=== PATIENT | female | born 1955 | race African-American/Black ===

== ENCOUNTER → 2016-05-14 | Outpatient (CLI) | payer MEDICARE ==
--- NOTE | ~2016-05-14 | CT57 ---
[facility] A Service of [facility] RADIOLOGY TEXT RESULTS PATIENT: MARCI PAZ LOCATION: [facility] #: [id number] : 51 UNIT #: [id number] AGE: [address]: Indiana Vyas MD SEX: F ORDER DR: [id number] [facility] [address] [place], [place] [address] [id number] O MR#: [id number] [facility] #: [id number] NAME: MARCI PAZ : 1955 SEX: F STUDY DATE/TIME: 05/14/2016 12:43 UNIT: [facility] ROOM: STUDY DESCRIPTION: CT Chest Wo Cont Attending Physician: Indiana Vyas M.D., Ph.D. Referring Physician: Indiana Vyas M.D., Ph.D. Ordering Physician: Indiana Vyas M.D., Ph.D. MEDICAL IMAGING REPORT This report is preliminary unless electronic signature is present EXAM CT scan of the chest without contrast. HISTORY 61-year-old female with esophageal cancer. Observation for any malignant process. Radiation therapy and chemotherapy from November 2015 to February 2016. Routine follow-up. TECHNIQUE CT of the chest was performed without contrast. Coronal and sagittal reformatted images were obtained. This CT exam was performed with one or more of the following radiation dose reduction techniques: automatic exposure control, adjustment of mA and/or kV according to patient size, and iterative reconstruction. COMPARISON PET/CT, 02/08/2016. FINDINGS There is no suspicious lymphadenopathy. There is some stable thickening of the upper and mid esophagus. There is no pleural effusion. Coronary artery calcification. There is some minimal scarring in the medial right lower lobe. There are stable scattered micronodules in the right lung. Please refer to separately dictated CT of the abdomen and pelvis for findings below the diaphragm. The bone windows are unremarkable. IMPRESSION 1. There is no suspicious pulmonary nodule or lymphadenopathy. 2. There is stable mild esophageal thickening, as described. [facility] A Service [facility] RADIOLOGY TEXT RESULTS PATIENT: MARCI PAZ [id number] 51 UNIT #: [id number] AGE: [address]: Indiana Vyas MD SEX: F ORDER DR: Dictated by... Juan R Martinez M.D. THIS IS AN ELECTRONICALLY VERIFIED REPORT Juan R Martinez M.D. at 05/17/2016 9:02 AM LUCILA/clara TD: 05/14/2016 17:35 JOB #: [id number] MEDICAL IMAGING REPORT Page 1 of 1 COPY
--- NOTE | ~2016-05-14 | CT7 ---
[facility] A Service of [facility] & [facility] RADIOLOGY TEXT RESULTS PATIENT: MARCI PAZ LOCATION: [facility] : 51 UNIT #: [id number] AGE: [address]: Indiana Vyas MD SEX: F ORDER DR: [id number] [facility] [address] [place], [place] [address] [id number] O MR#: [id number] [facility] #: [id number] NAME: MARCI PAZ : 1955 SEX: F STUDY DATE/TIME: 05/14/2016 12:43 UNIT: [facility] ROOM: STUDY DESCRIPTION: CT Abdomen Wo Cont Attending Physician: Indiana Vyas M.D., Ph.D. Referring Physician: Indiana Vyas M.D., Ph.D. Ordering Physician: Indiana Vyas M.D., Ph.D. MEDICAL IMAGING REPORT This report is preliminary unless electronic signature is present EXAM CT of the abdomen without contrast INDICATION Esophageal cancer. Observation for metastatic disease. TECHNIQUE CT of the abdomen was performed following the administration of oral contrast only. Coronal and sagittal reformatted images were obtained. This CT exam was performed with one or more of the following radiation dose reduction techniques: automatic exposure control, adjustment of mA and/or kV according to patient size, and iterative reconstruction. COMPARISON PET CT 02/08/2016. FINDINGS Please refer to separately dictated CT of the chest for findings above the diaphragm. Evaluation of the solid organs and viscera of the abdomen and pelvis was limited due to lack of IV contrast. The liver, gallbladder, and spleen are unremarkable. Stable renal cysts including a probable hyperdense cyst in the left kidney. The adrenal glands are unremarkable. The pancreas is unremarkable. There is no evidence of lymphadenopathy. There is an infrarenal abdominal aortic aneurysm which is slightly increased in size measuring 3.9 cm in greatest AP dimension. There is a small fat-containing ventral abdominal wall hernia. No evidence of lymphadenopathy. Bone windows are unremarkable. IMPRESSION 1. There is no evidence for metastatic disease to the abdomen. 2. Slight interval increase in size of infrarenal abdominal aortic aneurysm now measuring 3.9 cm in greatest AP dimension. [facility]. [facility] A Service of [facility] & [facility] RADIOLOGY TEXT RESULTS PATIENT: MARCI PAZ LOCATION: [facility] : 51 UNIT #: [id number] AGE: [address]: Indiana Vyas MD SEX: F ORDER DR: Dictated by... Juan R Martinez M.D. THIS IS AN ELECTRONICALLY VERIFIED REPORT Juan R Martinez M.D. at 05/15/2016 8:21 AM LUCILA/xavier TD: 05/14/2016 17:31 JOB #: [id number] MEDICAL IMAGING REPORT Page 1 of 1 COPY
[2016-05-14 14:30] LABS: POC - CREATININE 1.94 mg/dL (0.44-1.03)
== END | disposition home or self-care (01) ==
LOC: CCAT 11:31
PROVIDERS: Internal Medicine Hematology & Oncology
DX: C15.9 Malignant neoplasm of esophagus, unspecified (principal); I71.4 Abdominal aortic aneurysm, without rupture
CPT/HCPCS: 71250; 74150; 82565